=== PATIENT | male | born 1970 ===

== ENCOUNTER 2019-07-04 10:25 | Outpatient (CLI) | payer OTHER ==
--- NOTE | 2019-07-04 12:38 | Diagnostic Imaging Report ---
Indication: Abdominal pain, hypoalbuminemia Technique: Multiplanar grayscale and duplex Doppler imaging of the abdomen Comparison: None FINDINGS: Imaged portions of the abdominal aorta normal in caliber. Imaged portions of the pancreatic head unremarkable in appearance. Liver is normal in size. Hepatic contour appears smooth. Echogenicity is homogeneous. No sonographically appreciable hepatic mass identified. Main portal vein is patent with normal direction of flow. Gallbladder is unremarkable in appearance. No gallstones or gallbladder sludge identified. No gallbladder wall thickening or pericholecystic fluid. Sonographic Cortes sign reported as negative. There is no intrahepatic or extra hepatic biliary ductal dilatation. Common bile duct measures 3 mm in diameter. Kidneys are symmetric in size and demonstrate normal echogenicity and normal color flow. There is no hydronephrosis or sonographically appreciable renal stone. Spleen is normal in size and appearance. No ascites is demonstrated. IMPRESSION: Unremarkable abdominal ultrasound.
== END 2019-07-04 12:25 | disposition home or self-care (01) ==
LOC: ULS 10:25
DX: E88.09 Other disorders of plasma-protein metabolism, not elsewhere classified (principal); R10.9 Unspecified abdominal pain
CPT/HCPCS: 76700